=== PATIENT | male | born 1930 | race Caucasian/White ===

== ENCOUNTER → 2017-04-24 | Outpatient (CLI) | payer MEDICARE, OTHER | LOC: PETCFH 09:49 | PROVIDERS: ATTEND Urology | DX: R97.20 Elevated prostate specific antigen [PSA] (principal); J34.89 Other specified disorders of nose and nasal sinuses | CPT/HCPCS: 78306; A9503 ==

== ENCOUNTER → 2017-05-01 | Outpatient (CLI) | payer MEDICARE, OTHER ==
[~2017-05-01] MED LIST: REGADENOSON 0.4 MG/5 ML SYRINGE ONE
== END | disposition home or self-care (01) ==
LOC: CFH 08:09
PROVIDERS: ATTEND Internal Medicine Cardiovascular Disease
DX: I08.2 Rheumatic disorders of both aortic and tricuspid valves (principal); I25.2 Old myocardial infarction; I49.3 Ventricular premature depolarization
CPT/HCPCS: 78452; 93017; 93306; A9502; J2785

== ENCOUNTER → 2019-02-17 | Outpatient (CLI) | payer MEDICARE | END | disposition home or self-care (01) | LOC: CFH 08:29 | PROVIDERS: ATTEND Specialist | DX: I08.3 Combined rheumatic disorders of mitral, aortic and tricuspid valves (principal); I70.0 Atherosclerosis of aorta; E78.5 Hyperlipidemia, unspecified; C83.30 Diffuse large B-cell lymphoma, unspecified site | CPT/HCPCS: 93306 ==

== ENCOUNTER 2019-05-20 07:40 | Outpatient (CLI) | payer MEDICARE, OTHER | END 2019-05-20 23:59 | disposition home or self-care (01) | LOC: ROC 07:40 | PROVIDERS: ATTEND Radiology Radiation Oncology | DX: C83.39 Diffuse large B-cell lymphoma, extranodal and solid organ sites (principal) | CPT/HCPCS: G0463 ==

== ENCOUNTER 2019-07-26 23:06 | Emergency (ER) | payer MEDICARE, OTHER ==
[~2019-07-26] VITALS: Ht 188 cm; Wt 88.0 kg
--- NOTE | 2019-07-26 23:23 | NUR ---
ESTELLA-DAUGHTER [phone]
[2019-07-26] MEDS ORDERED: LIDOCAINE 1%-EPI 1:100K, 20ML ONE (23:26)
[2019-07-26] MEDS ORDERED: LIDOCAINE 1%-EPI 1:100K, 20ML INFIL ONE (23:30)
[2019-07-26] MEDS ORDERED: NEOSPORIN OINT. PKT 1 PACKET ONE (23:47)
[2019-07-27 00:24] VITALS: BP 116/74
== END 2019-07-27 00:32 | disposition home or self-care (01) ==
LOC: ED 23:30
DX: S81.812A Laceration without foreign body, left lower leg, initial encounter (principal); S80.12XA Contusion of left lower leg, initial encounter; X58.XXXA Exposure to other specified factors, initial encounter; Y93.89 Activity, other specified; Y92.89 Other specified places as the place of occurrence of the external cause; Y99.8 Other external cause status
CPT/HCPCS: 12032; 99284

== ENCOUNTER → 2019-07-31 | Outpatient (CLI) | payer MEDICARE, OTHER | END | disposition home or self-care (01) | LOC: ROC 07:50 | PROVIDERS: ATTEND Radiology Radiation Oncology | DX: C83.30 Diffuse large B-cell lymphoma, unspecified site (principal); C44.91 Basal cell carcinoma of skin, unspecified | CPT/HCPCS: G0463 ==

== ENCOUNTER 2019-08-28 07:51 | Outpatient (CLI) | payer MEDICARE, OTHER | END 2019-08-28 23:59 | disposition home or self-care (01) | LOC: ROC 07:51 | PROVIDERS: ATTEND Radiology Radiation Oncology | DX: C44.711 Basal cell carcinoma of skin of unspecified lower limb, including hip (principal) | CPT/HCPCS: G0463 ==

== ENCOUNTER 2019-09-04 09:58 | Outpatient (CLI) | payer MEDICARE, OTHER | END 2019-09-04 23:59 | disposition home or self-care (01) | LOC: ROC 09:58 | PROVIDERS: ATTEND Radiology Radiation Oncology | DX: C44.711 Basal cell carcinoma of skin of unspecified lower limb, including hip (principal) | CPT/HCPCS: G0463 ==

== ENCOUNTER 2019-10-08 07:34 | Outpatient (CLI) | payer MEDICARE, OTHER | END 2019-10-08 23:59 | disposition home or self-care (01) | LOC: ROC 07:34 | PROVIDERS: ATTEND Radiology Radiation Oncology | DX: Z08 Encounter for follow-up examination after completed treatment for malignant neoplasm (principal); C44.711 Basal cell carcinoma of skin of unspecified lower limb, including hip | CPT/HCPCS: G0463 ==

== ENCOUNTER → 2019-11-05 | Outpatient (CLI) | payer MEDICARE, OTHER | END | disposition home or self-care (01) | LOC: ROC 08:05 | PROVIDERS: ATTEND Radiology Radiation Oncology | DX: C44.712 Basal cell carcinoma of skin of right lower limb, including hip (principal); C83.35 Diffuse large B-cell lymphoma, lymph nodes of inguinal region and lower limb | CPT/HCPCS: G0463 ==

== ENCOUNTER → 2019-12-02 | Outpatient (CLI) | payer MEDICARE, OTHER | END | disposition home or self-care (01) | LOC: ROC 08:41 | PROVIDERS: ATTEND Radiology Radiation Oncology | DX: C44.712 Basal cell carcinoma of skin of right lower limb, including hip (principal); C83.35 Diffuse large B-cell lymphoma, lymph nodes of inguinal region and lower limb | CPT/HCPCS: G0463 ==

== ENCOUNTER → 2019-12-31 | Outpatient (CLI) | payer MEDICARE, OTHER | END | disposition home or self-care (01) | LOC: PETCFH 07:40 | PROVIDERS: ATTEND Specialist | DX: C83.30 Diffuse large B-cell lymphoma, unspecified site (principal); R91.8 Other nonspecific abnormal finding of lung field | CPT/HCPCS: 78816; A9552 ==

== ENCOUNTER 2020-01-08 14:40 | Outpatient (CLI) | payer MEDICARE, OTHER | END 2020-01-08 23:59 | disposition home or self-care (01) | LOC: WOUND 14:40 | PROVIDERS: ATTEND Family Medicine | DX: L97.812 Non-pressure chronic ulcer of other part of right lower leg with fat layer exposed (principal); C44.712 Basal cell carcinoma of skin of right lower limb, including hip; C83.35 Diffuse large B-cell lymphoma, lymph nodes of inguinal region and lower limb; I25.10 Atherosclerotic heart disease of native coronary artery without angina pectoris; L40.0 Psoriasis vulgaris; I35.0 Nonrheumatic aortic (valve) stenosis; N40.0 Benign prostatic hyperplasia without lower urinary tract symptoms; Z85.820 Personal history of malignant melanoma of skin | CPT/HCPCS: 97597; 97598; G0463 ==

== ENCOUNTER → 2020-01-15 | Outpatient (CLI) | payer MEDICARE, OTHER | END | disposition home or self-care (01) | LOC: WOUND 09:37 | PROVIDERS: ATTEND Family Medicine | DX: L97.812 Non-pressure chronic ulcer of other part of right lower leg with fat layer exposed (principal); C44.712 Basal cell carcinoma of skin of right lower limb, including hip; C83.35 Diffuse large B-cell lymphoma, lymph nodes of inguinal region and lower limb; I25.10 Atherosclerotic heart disease of native coronary artery without angina pectoris; L40.0 Psoriasis vulgaris; I35.0 Nonrheumatic aortic (valve) stenosis; N40.0 Benign prostatic hyperplasia without lower urinary tract symptoms; Z85.820 Personal history of malignant melanoma of skin | CPT/HCPCS: 11042; 11045 ==

== ENCOUNTER → 2020-01-22 | Outpatient (CLI) | payer MEDICARE, OTHER | END | disposition home or self-care (01) | LOC: WOUND 09:38 | PROVIDERS: ATTEND Family Medicine | DX: L97.812 Non-pressure chronic ulcer of other part of right lower leg with fat layer exposed (principal); C44.712 Basal cell carcinoma of skin of right lower limb, including hip; C83.35 Diffuse large B-cell lymphoma, lymph nodes of inguinal region and lower limb; I25.10 Atherosclerotic heart disease of native coronary artery without angina pectoris; L40.0 Psoriasis vulgaris; I35.0 Nonrheumatic aortic (valve) stenosis; E78.5 Hyperlipidemia, unspecified; N40.0 Benign prostatic hyperplasia without lower urinary tract symptoms; Z85.820 Personal history of malignant melanoma of skin | CPT/HCPCS: 97597; 97598 ==

== ENCOUNTER → 2020-01-29 | Outpatient (CLI) | payer MEDICARE, OTHER | END | disposition home or self-care (01) | LOC: WOUND 09:34 | PROVIDERS: ATTEND Family Medicine | DX: L97.812 Non-pressure chronic ulcer of other part of right lower leg with fat layer exposed (principal); C44.712 Basal cell carcinoma of skin of right lower limb, including hip; C83.35 Diffuse large B-cell lymphoma, lymph nodes of inguinal region and lower limb; I25.10 Atherosclerotic heart disease of native coronary artery without angina pectoris; L40.0 Psoriasis vulgaris; N40.0 Benign prostatic hyperplasia without lower urinary tract symptoms; E78.5 Hyperlipidemia, unspecified; Z85.820 Personal history of malignant melanoma of skin | CPT/HCPCS: 97597; 97598 ==

== ENCOUNTER 2020-02-05 09:37 | Outpatient (CLI) | payer MEDICARE, OTHER | END 2020-02-05 23:59 | disposition home or self-care (01) | LOC: WOUND 09:37 | PROVIDERS: ATTEND Family Medicine | DX: L97.812 Non-pressure chronic ulcer of other part of right lower leg with fat layer exposed (principal); C44.712 Basal cell carcinoma of skin of right lower limb, including hip; C83.35 Diffuse large B-cell lymphoma, lymph nodes of inguinal region and lower limb; I25.10 Atherosclerotic heart disease of native coronary artery without angina pectoris; L40.0 Psoriasis vulgaris; N40.0 Benign prostatic hyperplasia without lower urinary tract symptoms; E78.5 Hyperlipidemia, unspecified; Z85.820 Personal history of malignant melanoma of skin | CPT/HCPCS: 97597; 97598 ==

== ENCOUNTER → 2020-02-12 | Outpatient (CLI) | payer MEDICARE, OTHER | END | disposition home or self-care (01) | LOC: WOUND 13:04 | PROVIDERS: ATTEND Family Medicine | DX: L97.812 Non-pressure chronic ulcer of other part of right lower leg with fat layer exposed (principal); C44.712 Basal cell carcinoma of skin of right lower limb, including hip; C83.35 Diffuse large B-cell lymphoma, lymph nodes of inguinal region and lower limb; I25.10 Atherosclerotic heart disease of native coronary artery without angina pectoris; L40.0 Psoriasis vulgaris; N40.0 Benign prostatic hyperplasia without lower urinary tract symptoms; E78.5 Hyperlipidemia, unspecified; Z85.820 Personal history of malignant melanoma of skin | CPT/HCPCS: 97597; 97598 ==

== ENCOUNTER → 2020-02-19 | Outpatient (CLI) | payer MEDICARE, OTHER | END | disposition home or self-care (01) | LOC: WOUND 09:25 | PROVIDERS: ATTEND Family Medicine | DX: L97.812 Non-pressure chronic ulcer of other part of right lower leg with fat layer exposed (principal); C44.712 Basal cell carcinoma of skin of right lower limb, including hip; C83.35 Diffuse large B-cell lymphoma, lymph nodes of inguinal region and lower limb; I25.10 Atherosclerotic heart disease of native coronary artery without angina pectoris; L40.0 Psoriasis vulgaris; N40.0 Benign prostatic hyperplasia without lower urinary tract symptoms; E78.5 Hyperlipidemia, unspecified; Z85.820 Personal history of malignant melanoma of skin | CPT/HCPCS: 97597; 97598 ==

== ENCOUNTER → 2020-02-24 | Outpatient (CLI) | payer MEDICARE, OTHER | END | disposition home or self-care (01) | LOC: WOUND 14:04 | PROVIDERS: ATTEND Internal Medicine | DX: L97.812 Non-pressure chronic ulcer of other part of right lower leg with fat layer exposed (principal); C44.712 Basal cell carcinoma of skin of right lower limb, including hip; C83.35 Diffuse large B-cell lymphoma, lymph nodes of inguinal region and lower limb; I25.10 Atherosclerotic heart disease of native coronary artery without angina pectoris; L40.0 Psoriasis vulgaris; N40.0 Benign prostatic hyperplasia without lower urinary tract symptoms; E78.5 Hyperlipidemia, unspecified; Z85.820 Personal history of malignant melanoma of skin | CPT/HCPCS: 97597; 97598 ==

== ENCOUNTER → 2020-03-02 | Outpatient (CLI) | payer MEDICARE, OTHER | END | disposition home or self-care (01) | LOC: WOUND 14:31 | PROVIDERS: ATTEND Internal Medicine | DX: L97.812 Non-pressure chronic ulcer of other part of right lower leg with fat layer exposed (principal); C44.712 Basal cell carcinoma of skin of right lower limb, including hip; C83.35 Diffuse large B-cell lymphoma, lymph nodes of inguinal region and lower limb; I25.10 Atherosclerotic heart disease of native coronary artery without angina pectoris; L40.0 Psoriasis vulgaris; N40.0 Benign prostatic hyperplasia without lower urinary tract symptoms; I89.0 Lymphedema, not elsewhere classified; E78.5 Hyperlipidemia, unspecified; Z85.820 Personal history of malignant melanoma of skin | CPT/HCPCS: 97597; 97598 ==

== ENCOUNTER 2020-03-05 12:10 | Emergency (ER) | payer MEDICARE, OTHER ==
[~2020-03-05] VITALS: Ht 188 cm; Wt 95.1 kg
--- NOTE | 2020-03-05 13:19 | NUR ---
pt to room from lobby
--- NOTE | 2020-03-05 13:29 | NUR ---
PT CAME IN CO OF LLE SWELLING AND REDNESS. PT IS GOING THROUGH CHEMO FOR SKIN CANCER AND IS HIGH RISK FOR CLOTS. US COMPLETE. PT RESTING IN [facility]. AWAITING
[2020-03-05 14:06] VITALS: BP 115/61
--- NOTE | 2020-03-05 14:07 | NUR ---
IN WITH PT AT THIS TIME
== END 2020-03-05 14:18 | disposition home or self-care (01) ==
LOC: ED 14:11
DX: I89.0 Lymphedema, not elsewhere classified (principal); R60.0 Localized edema
CPT/HCPCS: 99284

== ENCOUNTER → 2020-03-09 | Outpatient (CLI) | payer MEDICARE, OTHER | END | disposition home or self-care (01) | LOC: WOUND 14:03 | PROVIDERS: ATTEND Internal Medicine | DX: L97.812 Non-pressure chronic ulcer of other part of right lower leg with fat layer exposed (principal); C44.712 Basal cell carcinoma of skin of right lower limb, including hip; C83.35 Diffuse large B-cell lymphoma, lymph nodes of inguinal region and lower limb; I25.10 Atherosclerotic heart disease of native coronary artery without angina pectoris; L40.0 Psoriasis vulgaris; N40.0 Benign prostatic hyperplasia without lower urinary tract symptoms; I89.0 Lymphedema, not elsewhere classified; E78.5 Hyperlipidemia, unspecified; Z85.820 Personal history of malignant melanoma of skin | CPT/HCPCS: 97597; 97598 ==

== ENCOUNTER → 2020-03-16 | Outpatient (CLI) | payer MEDICARE, OTHER | END | disposition home or self-care (01) | LOC: WOUND 14:38 | PROVIDERS: ATTEND Internal Medicine | DX: L97.812 Non-pressure chronic ulcer of other part of right lower leg with fat layer exposed (principal); C44.712 Basal cell carcinoma of skin of right lower limb, including hip; C83.35 Diffuse large B-cell lymphoma, lymph nodes of inguinal region and lower limb; I25.10 Atherosclerotic heart disease of native coronary artery without angina pectoris; L40.0 Psoriasis vulgaris; N40.0 Benign prostatic hyperplasia without lower urinary tract symptoms; I89.0 Lymphedema, not elsewhere classified; E78.5 Hyperlipidemia, unspecified; Z85.820 Personal history of malignant melanoma of skin | CPT/HCPCS: 97597; 97598 ==

== ENCOUNTER → 2020-03-23 | Outpatient (CLI) | payer MEDICARE, OTHER | END | disposition home or self-care (01) | LOC: WOUND 14:12 | PROVIDERS: ATTEND Internal Medicine | DX: L97.812 Non-pressure chronic ulcer of other part of right lower leg with fat layer exposed (principal); C44.712 Basal cell carcinoma of skin of right lower limb, including hip; C83.35 Diffuse large B-cell lymphoma, lymph nodes of inguinal region and lower limb; I25.10 Atherosclerotic heart disease of native coronary artery without angina pectoris; L40.0 Psoriasis vulgaris; N40.0 Benign prostatic hyperplasia without lower urinary tract symptoms; I89.0 Lymphedema, not elsewhere classified; E78.5 Hyperlipidemia, unspecified; Z85.820 Personal history of malignant melanoma of skin | CPT/HCPCS: 97597; 97598 ==

== ENCOUNTER → 2020-04-05 | Outpatient (CLI) | payer MEDICARE, OTHER | END | disposition home or self-care (01) | LOC: WOUND 13:06 | PROVIDERS: ATTEND Nurse Practitioner Family | DX: L97.812 Non-pressure chronic ulcer of other part of right lower leg with fat layer exposed (principal); C44.712 Basal cell carcinoma of skin of right lower limb, including hip; C83.35 Diffuse large B-cell lymphoma, lymph nodes of inguinal region and lower limb; I25.10 Atherosclerotic heart disease of native coronary artery without angina pectoris; L40.0 Psoriasis vulgaris; N40.0 Benign prostatic hyperplasia without lower urinary tract symptoms; I89.0 Lymphedema, not elsewhere classified; E78.5 Hyperlipidemia, unspecified; Z85.820 Personal history of malignant melanoma of skin | CPT/HCPCS: 97597; 97598 ==

== ENCOUNTER → 2020-04-06 | Outpatient (CLI) | payer MEDICARE, OTHER | END | disposition home or self-care (01) | LOC: CVU 12:52 | PROVIDERS: ATTEND Internal Medicine | DX: I86.8 Varicose veins of other specified sites (principal); L97.919 Non-pressure chronic ulcer of unspecified part of right lower leg with unspecified severity; I70.203 Unspecified atherosclerosis of native arteries of extremities, bilateral legs | CPT/HCPCS: 93922; 93925; 93970 ==

== ENCOUNTER 2020-04-12 13:32 | Outpatient (CLI) | payer MEDICARE, OTHER | END 2020-04-12 23:59 | disposition home or self-care (01) | LOC: WOUND 13:32 | PROVIDERS: ATTEND Nurse Practitioner Family | DX: L97.812 Non-pressure chronic ulcer of other part of right lower leg with fat layer exposed (principal); C43.4 Malignant melanoma of scalp and neck; C83.35 Diffuse large B-cell lymphoma, lymph nodes of inguinal region and lower limb; I25.10 Atherosclerotic heart disease of native coronary artery without angina pectoris; L40.0 Psoriasis vulgaris | CPT/HCPCS: 15271; 15272; Q4196; 15275; 15276 ==

== ENCOUNTER 2020-04-19 14:31 | Outpatient (CLI) | payer MEDICARE, OTHER | END 2020-04-19 23:59 | disposition home or self-care (01) | LOC: WOUND 14:31 | PROVIDERS: ATTEND Nurse Practitioner Family | DX: L97.812 Non-pressure chronic ulcer of other part of right lower leg with fat layer exposed (principal); C44.712 Basal cell carcinoma of skin of right lower limb, including hip; C83.35 Diffuse large B-cell lymphoma, lymph nodes of inguinal region and lower limb; I25.10 Atherosclerotic heart disease of native coronary artery without angina pectoris; L40.0 Psoriasis vulgaris; N40.0 Benign prostatic hyperplasia without lower urinary tract symptoms; I89.0 Lymphedema, not elsewhere classified; E78.5 Hyperlipidemia, unspecified; Z85.820 Personal history of malignant melanoma of skin | CPT/HCPCS: 87015; 87070; 87077; 87102; 87116; 87147; 87186; 87205; 87206; 97597; 97598 ==

== ENCOUNTER 2020-04-26 08:31 | Outpatient (CLI) | payer MEDICARE, OTHER | END 2020-04-26 23:59 | disposition home or self-care (01) | LOC: WOUND 08:31 | PROVIDERS: ATTEND Nurse Practitioner Family | DX: I70.238 Atherosclerosis of native arteries of right leg with ulceration of other part of lower leg (principal); L59.8 Other specified disorders of the skin and subcutaneous tissue related to radiation; I83.018 Varicose veins of right lower extremity with ulcer other part of lower leg; L97.812 Non-pressure chronic ulcer of other part of right lower leg with fat layer exposed; C44.712 Basal cell carcinoma of skin of right lower limb, including hip; C83.35 Diffuse large B-cell lymphoma, lymph nodes of inguinal region and lower limb; I25.10 Atherosclerotic heart disease of native coronary artery without angina pectoris; L40.0 Psoriasis vulgaris; N40.0 Benign prostatic hyperplasia without lower urinary tract symptoms; I89.0 Lymphedema, not elsewhere classified; E78.5 Hyperlipidemia, unspecified; Z85.820 Personal history of malignant melanoma of skin; Y84.2 Radiological procedure and radiotherapy as the cause of abnormal reaction of the patient, or of later complication, without mention of misadventure at the time of the procedure | CPT/HCPCS: 97597; 97598 ==

== ENCOUNTER 2020-05-03 11:08 | Outpatient (CLI) | payer MEDICARE, OTHER | END 2020-05-03 23:59 | disposition home or self-care (01) | LOC: WOUND 11:08 | PROVIDERS: ATTEND Nurse Practitioner Family | DX: I70.238 Atherosclerosis of native arteries of right leg with ulceration of other part of lower leg (principal); I83.018 Varicose veins of right lower extremity with ulcer other part of lower leg; L97.812 Non-pressure chronic ulcer of other part of right lower leg with fat layer exposed; L59.8 Other specified disorders of the skin and subcutaneous tissue related to radiation; C44.712 Basal cell carcinoma of skin of right lower limb, including hip; C83.35 Diffuse large B-cell lymphoma, lymph nodes of inguinal region and lower limb; I25.10 Atherosclerotic heart disease of native coronary artery without angina pectoris; L40.0 Psoriasis vulgaris; N40.0 Benign prostatic hyperplasia without lower urinary tract symptoms; I89.0 Lymphedema, not elsewhere classified; E78.5 Hyperlipidemia, unspecified; Z85.820 Personal history of malignant melanoma of skin; Y84.2 Radiological procedure and radiotherapy as the cause of abnormal reaction of the patient, or of later complication, without mention of misadventure at the time of the procedure | CPT/HCPCS: 97597; 97598 ==

== ENCOUNTER 2020-05-06 11:15 | Outpatient (CLI) | payer MEDICARE, OTHER | END 2020-05-06 23:59 | disposition home or self-care (01) | LOC: WOUND 11:15 | PROVIDERS: ATTEND Internal Medicine Cardiovascular Disease | DX: I70.238 Atherosclerosis of native arteries of right leg with ulceration of other part of lower leg (principal); L59.8 Other specified disorders of the skin and subcutaneous tissue related to radiation; I83.018 Varicose veins of right lower extremity with ulcer other part of lower leg; L97.812 Non-pressure chronic ulcer of other part of right lower leg with fat layer exposed; C44.712 Basal cell carcinoma of skin of right lower limb, including hip; C83.35 Diffuse large B-cell lymphoma, lymph nodes of inguinal region and lower limb; I25.10 Atherosclerotic heart disease of native coronary artery without angina pectoris; L40.0 Psoriasis vulgaris; N40.0 Benign prostatic hyperplasia without lower urinary tract symptoms; I89.0 Lymphedema, not elsewhere classified; E78.5 Hyperlipidemia, unspecified; Z85.820 Personal history of malignant melanoma of skin; Y84.2 Radiological procedure and radiotherapy as the cause of abnormal reaction of the patient, or of later complication, without mention of misadventure at the time of the procedure | CPT/HCPCS: 97605 ==

== ENCOUNTER → 2020-05-18 | Outpatient (CLI) | payer MEDICARE, OTHER | END | disposition home or self-care (01) | LOC: WOUND 11:01 | PROVIDERS: ATTEND Internal Medicine | DX: I70.238 Atherosclerosis of native arteries of right leg with ulceration of other part of lower leg (principal); L59.8 Other specified disorders of the skin and subcutaneous tissue related to radiation; I83.018 Varicose veins of right lower extremity with ulcer other part of lower leg; L97.812 Non-pressure chronic ulcer of other part of right lower leg with fat layer exposed; I70.292 Other atherosclerosis of native arteries of extremities, left leg; C44.712 Basal cell carcinoma of skin of right lower limb, including hip; C83.35 Diffuse large B-cell lymphoma, lymph nodes of inguinal region and lower limb; I25.10 Atherosclerotic heart disease of native coronary artery without angina pectoris; L40.0 Psoriasis vulgaris; N40.0 Benign prostatic hyperplasia without lower urinary tract symptoms; I89.0 Lymphedema, not elsewhere classified; E78.5 Hyperlipidemia, unspecified; Z85.820 Personal history of malignant melanoma of skin; Y84.2 Radiological procedure and radiotherapy as the cause of abnormal reaction of the patient, or of later complication, without mention of misadventure at the time of the procedure | CPT/HCPCS: 97597; 97598 ==

== ENCOUNTER → 2020-05-25 | Outpatient (CLI) | payer MEDICARE, OTHER | END | disposition home or self-care (01) | LOC: WOUND 08:21 | PROVIDERS: ATTEND Internal Medicine | DX: I70.238 Atherosclerosis of native arteries of right leg with ulceration of other part of lower leg (principal); I83.018 Varicose veins of right lower extremity with ulcer other part of lower leg; L97.812 Non-pressure chronic ulcer of other part of right lower leg with fat layer exposed; S81.801D Unspecified open wound, right lower leg, subsequent encounter; L59.8 Other specified disorders of the skin and subcutaneous tissue related to radiation; I70.292 Other atherosclerosis of native arteries of extremities, left leg; C44.712 Basal cell carcinoma of skin of right lower limb, including hip; C83.35 Diffuse large B-cell lymphoma, lymph nodes of inguinal region and lower limb; I25.10 Atherosclerotic heart disease of native coronary artery without angina pectoris; L40.0 Psoriasis vulgaris; N40.0 Benign prostatic hyperplasia without lower urinary tract symptoms; I89.0 Lymphedema, not elsewhere classified; E78.5 Hyperlipidemia, unspecified; Z85.820 Personal history of malignant melanoma of skin; Y84.2 Radiological procedure and radiotherapy as the cause of abnormal reaction of the patient, or of later complication, without mention of misadventure at the time of the procedure; X58.XXXD Exposure to other specified factors, subsequent encounter | CPT/HCPCS: 97597; 97598 ==

== ENCOUNTER → 2020-05-31 | Outpatient (CLI) | payer MEDICARE, OTHER | END | disposition home or self-care (01) | LOC: WOUND 08:12 | PROVIDERS: ATTEND Nurse Practitioner Family | DX: I70.238 Atherosclerosis of native arteries of right leg with ulceration of other part of lower leg (principal); I83.018 Varicose veins of right lower extremity with ulcer other part of lower leg; L97.812 Non-pressure chronic ulcer of other part of right lower leg with fat layer exposed; S81.801D Unspecified open wound, right lower leg, subsequent encounter; L59.8 Other specified disorders of the skin and subcutaneous tissue related to radiation; I70.292 Other atherosclerosis of native arteries of extremities, left leg; C44.712 Basal cell carcinoma of skin of right lower limb, including hip; C83.35 Diffuse large B-cell lymphoma, lymph nodes of inguinal region and lower limb; I25.10 Atherosclerotic heart disease of native coronary artery without angina pectoris; L40.0 Psoriasis vulgaris; N40.0 Benign prostatic hyperplasia without lower urinary tract symptoms; I89.0 Lymphedema, not elsewhere classified; E78.5 Hyperlipidemia, unspecified; Z85.820 Personal history of malignant melanoma of skin; Y84.2 Radiological procedure and radiotherapy as the cause of abnormal reaction of the patient, or of later complication, without mention of misadventure at the time of the procedure; X58.XXXD Exposure to other specified factors, subsequent encounter | CPT/HCPCS: 97597; 97598 ==

== ENCOUNTER 2020-06-07 10:03 | Outpatient (CLI) | payer MEDICARE, OTHER | END 2020-06-07 23:59 | disposition home or self-care (01) | LOC: WOUND 10:03 | PROVIDERS: ATTEND Nurse Practitioner Family | DX: I70.238 Atherosclerosis of native arteries of right leg with ulceration of other part of lower leg (principal); I83.018 Varicose veins of right lower extremity with ulcer other part of lower leg; L97.812 Non-pressure chronic ulcer of other part of right lower leg with fat layer exposed; I70.292 Other atherosclerosis of native arteries of extremities, left leg; C44.712 Basal cell carcinoma of skin of right lower limb, including hip; C83.35 Diffuse large B-cell lymphoma, lymph nodes of inguinal region and lower limb; I25.10 Atherosclerotic heart disease of native coronary artery without angina pectoris; L40.0 Psoriasis vulgaris; S81.801D Unspecified open wound, right lower leg, subsequent encounter; L59.8 Other specified disorders of the skin and subcutaneous tissue related to radiation; N40.0 Benign prostatic hyperplasia without lower urinary tract symptoms; I89.0 Lymphedema, not elsewhere classified; E78.5 Hyperlipidemia, unspecified; Z85.820 Personal history of malignant melanoma of skin; Y84.2 Radiological procedure and radiotherapy as the cause of abnormal reaction of the patient, or of later complication, without mention of misadventure at the time of the procedure; X58.XXXD Exposure to other specified factors, subsequent encounter | CPT/HCPCS: 97597; 97598 ==

== ENCOUNTER → 2020-06-14 | Outpatient (CLI) | payer MEDICARE, OTHER | END | disposition home or self-care (01) | LOC: WOUND 13:31 | PROVIDERS: ATTEND Nurse Practitioner Family | DX: I70.238 Atherosclerosis of native arteries of right leg with ulceration of other part of lower leg (principal); I83.018 Varicose veins of right lower extremity with ulcer other part of lower leg; L97.812 Non-pressure chronic ulcer of other part of right lower leg with fat layer exposed; S81.801D Unspecified open wound, right lower leg, subsequent encounter; I70.292 Other atherosclerosis of native arteries of extremities, left leg; C44.712 Basal cell carcinoma of skin of right lower limb, including hip; C83.35 Diffuse large B-cell lymphoma, lymph nodes of inguinal region and lower limb; I25.10 Atherosclerotic heart disease of native coronary artery without angina pectoris; L40.0 Psoriasis vulgaris; L59.8 Other specified disorders of the skin and subcutaneous tissue related to radiation; N40.0 Benign prostatic hyperplasia without lower urinary tract symptoms; I89.0 Lymphedema, not elsewhere classified; E78.5 Hyperlipidemia, unspecified; Z85.820 Personal history of malignant melanoma of skin; Y84.2 Radiological procedure and radiotherapy as the cause of abnormal reaction of the patient, or of later complication, without mention of misadventure at the time of the procedure; X58.XXXD Exposure to other specified factors, subsequent encounter | CPT/HCPCS: 97597; 97598 ==

== ENCOUNTER 2020-06-21 14:25 | Outpatient (CLI) | payer MEDICARE, OTHER | END 2020-06-21 23:59 | disposition home or self-care (01) | LOC: WOUND 14:25 | PROVIDERS: ATTEND Nurse Practitioner Family | DX: I70.238 Atherosclerosis of native arteries of right leg with ulceration of other part of lower leg (principal); I83.018 Varicose veins of right lower extremity with ulcer other part of lower leg; L97.812 Non-pressure chronic ulcer of other part of right lower leg with fat layer exposed; L59.8 Other specified disorders of the skin and subcutaneous tissue related to radiation; S81.801D Unspecified open wound, right lower leg, subsequent encounter; L03.115 Cellulitis of right lower limb; I70.292 Other atherosclerosis of native arteries of extremities, left leg; C44.712 Basal cell carcinoma of skin of right lower limb, including hip; C83.35 Diffuse large B-cell lymphoma, lymph nodes of inguinal region and lower limb; I25.10 Atherosclerotic heart disease of native coronary artery without angina pectoris; L40.0 Psoriasis vulgaris; N40.0 Benign prostatic hyperplasia without lower urinary tract symptoms; I89.0 Lymphedema, not elsewhere classified; E78.5 Hyperlipidemia, unspecified; Z85.820 Personal history of malignant melanoma of skin; Y84.2 Radiological procedure and radiotherapy as the cause of abnormal reaction of the patient, or of later complication, without mention of misadventure at the time of the procedure; X58.XXXD Exposure to other specified factors, subsequent encounter | CPT/HCPCS: 15271; Q4133; 15272 ==

== ENCOUNTER → 2020-06-28 | Outpatient (CLI) | payer MEDICARE, OTHER | END | disposition home or self-care (01) | LOC: WOUND 14:22 | PROVIDERS: ATTEND Nurse Practitioner Family | DX: I83.018 Varicose veins of right lower extremity with ulcer other part of lower leg (principal); I70.238 Atherosclerosis of native arteries of right leg with ulceration of other part of lower leg; L97.815 Non-pressure chronic ulcer of other part of right lower leg with muscle involvement without evidence of necrosis; L59.8 Other specified disorders of the skin and subcutaneous tissue related to radiation; L03.115 Cellulitis of right lower limb; C44.712 Basal cell carcinoma of skin of right lower limb, including hip; C83.35 Diffuse large B-cell lymphoma, lymph nodes of inguinal region and lower limb; I25.10 Atherosclerotic heart disease of native coronary artery without angina pectoris; L40.0 Psoriasis vulgaris; I89.0 Lymphedema, not elsewhere classified; N40.0 Benign prostatic hyperplasia without lower urinary tract symptoms; E78.5 Hyperlipidemia, unspecified; Y84.2 Radiological procedure and radiotherapy as the cause of abnormal reaction of the patient, or of later complication, without mention of misadventure at the time of the procedure | CPT/HCPCS: 15271; 15272; Q4133 ==

== ENCOUNTER → 2020-07-05 | Outpatient (CLI) | payer MEDICARE, OTHER | END | disposition home or self-care (01) | LOC: WOUND 10:25 | PROVIDERS: ATTEND Nurse Practitioner Family | DX: I83.018 Varicose veins of right lower extremity with ulcer other part of lower leg (principal); I70.238 Atherosclerosis of native arteries of right leg with ulceration of other part of lower leg; L97.815 Non-pressure chronic ulcer of other part of right lower leg with muscle involvement without evidence of necrosis; L59.8 Other specified disorders of the skin and subcutaneous tissue related to radiation; L03.115 Cellulitis of right lower limb; C44.712 Basal cell carcinoma of skin of right lower limb, including hip; C83.35 Diffuse large B-cell lymphoma, lymph nodes of inguinal region and lower limb; I25.10 Atherosclerotic heart disease of native coronary artery without angina pectoris; L40.0 Psoriasis vulgaris; I89.0 Lymphedema, not elsewhere classified; N40.0 Benign prostatic hyperplasia without lower urinary tract symptoms; E78.5 Hyperlipidemia, unspecified; Z85.828 Personal history of other malignant neoplasm of skin; Y84.2 Radiological procedure and radiotherapy as the cause of abnormal reaction of the patient, or of later complication, without mention of misadventure at the time of the procedure | CPT/HCPCS: 15271; 15272; Q4133 ==

== ENCOUNTER → 2020-07-12 | Outpatient (CLI) | payer MEDICARE, OTHER | END | disposition home or self-care (01) | LOC: WOUND 10:40 | PROVIDERS: ATTEND Nurse Practitioner Family | DX: I83.018 Varicose veins of right lower extremity with ulcer other part of lower leg (principal); I70.238 Atherosclerosis of native arteries of right leg with ulceration of other part of lower leg; L97.812 Non-pressure chronic ulcer of other part of right lower leg with fat layer exposed; I70.202 Unspecified atherosclerosis of native arteries of extremities, left leg; L59.8 Other specified disorders of the skin and subcutaneous tissue related to radiation; L03.115 Cellulitis of right lower limb; C44.712 Basal cell carcinoma of skin of right lower limb, including hip; C83.35 Diffuse large B-cell lymphoma, lymph nodes of inguinal region and lower limb; I25.10 Atherosclerotic heart disease of native coronary artery without angina pectoris; L40.0 Psoriasis vulgaris; I89.0 Lymphedema, not elsewhere classified; L84 Corns and callosities; N40.0 Benign prostatic hyperplasia without lower urinary tract symptoms; E78.5 Hyperlipidemia, unspecified; Z85.828 Personal history of other malignant neoplasm of skin; Y84.2 Radiological procedure and radiotherapy as the cause of abnormal reaction of the patient, or of later complication, without mention of misadventure at the time of the procedure | CPT/HCPCS: C5271; C5272; Q4166 ==

== ENCOUNTER → 2020-07-19 | Outpatient (CLI) | payer MEDICARE, OTHER | END | disposition home or self-care (01) | LOC: WOUND 12:52 | PROVIDERS: ATTEND Nurse Practitioner Family | DX: I83.018 Varicose veins of right lower extremity with ulcer other part of lower leg (principal); I70.238 Atherosclerosis of native arteries of right leg with ulceration of other part of lower leg; L97.812 Non-pressure chronic ulcer of other part of right lower leg with fat layer exposed; I70.202 Unspecified atherosclerosis of native arteries of extremities, left leg; L59.8 Other specified disorders of the skin and subcutaneous tissue related to radiation; L03.115 Cellulitis of right lower limb; C44.712 Basal cell carcinoma of skin of right lower limb, including hip; C83.35 Diffuse large B-cell lymphoma, lymph nodes of inguinal region and lower limb; I25.10 Atherosclerotic heart disease of native coronary artery without angina pectoris; L40.0 Psoriasis vulgaris; I89.0 Lymphedema, not elsewhere classified; L84 Corns and callosities; N40.0 Benign prostatic hyperplasia without lower urinary tract symptoms; E78.5 Hyperlipidemia, unspecified; Z85.828 Personal history of other malignant neoplasm of skin; Y84.2 Radiological procedure and radiotherapy as the cause of abnormal reaction of the patient, or of later complication, without mention of misadventure at the time of the procedure | CPT/HCPCS: C5271; C5272; Q4166 ==

== ENCOUNTER → 2020-07-26 | Outpatient (CLI) | payer MEDICARE, OTHER | END | disposition home or self-care (01) | LOC: WOUND 13:18 | PROVIDERS: ATTEND Nurse Practitioner Family | DX: I83.018 Varicose veins of right lower extremity with ulcer other part of lower leg (principal); I70.238 Atherosclerosis of native arteries of right leg with ulceration of other part of lower leg; L97.812 Non-pressure chronic ulcer of other part of right lower leg with fat layer exposed; I70.202 Unspecified atherosclerosis of native arteries of extremities, left leg; L59.8 Other specified disorders of the skin and subcutaneous tissue related to radiation; L03.115 Cellulitis of right lower limb; C44.712 Basal cell carcinoma of skin of right lower limb, including hip; C83.35 Diffuse large B-cell lymphoma, lymph nodes of inguinal region and lower limb; I25.10 Atherosclerotic heart disease of native coronary artery without angina pectoris; L40.0 Psoriasis vulgaris; I89.0 Lymphedema, not elsewhere classified; L84 Corns and callosities; N40.0 Benign prostatic hyperplasia without lower urinary tract symptoms; E78.5 Hyperlipidemia, unspecified; Z85.828 Personal history of other malignant neoplasm of skin; Y84.2 Radiological procedure and radiotherapy as the cause of abnormal reaction of the patient, or of later complication, without mention of misadventure at the time of the procedure | CPT/HCPCS: 15271; 15272; Q4132 ==

== ENCOUNTER → 2020-08-09 | Outpatient (CLI) | payer MEDICARE, OTHER | END | disposition home or self-care (01) | LOC: WOUND 10:02 | PROVIDERS: ATTEND Nurse Practitioner Family | DX: I83.018 Varicose veins of right lower extremity with ulcer other part of lower leg (principal); I70.238 Atherosclerosis of native arteries of right leg with ulceration of other part of lower leg; L97.812 Non-pressure chronic ulcer of other part of right lower leg with fat layer exposed; L59.8 Other specified disorders of the skin and subcutaneous tissue related to radiation; I70.202 Unspecified atherosclerosis of native arteries of extremities, left leg; L03.115 Cellulitis of right lower limb; C44.712 Basal cell carcinoma of skin of right lower limb, including hip; C83.35 Diffuse large B-cell lymphoma, lymph nodes of inguinal region and lower limb; I25.10 Atherosclerotic heart disease of native coronary artery without angina pectoris; L40.0 Psoriasis vulgaris; I89.0 Lymphedema, not elsewhere classified; L84 Corns and callosities; N40.0 Benign prostatic hyperplasia without lower urinary tract symptoms; E78.5 Hyperlipidemia, unspecified; Z85.828 Personal history of other malignant neoplasm of skin; Y84.2 Radiological procedure and radiotherapy as the cause of abnormal reaction of the patient, or of later complication, without mention of misadventure at the time of the procedure | CPT/HCPCS: 15271; 15272; Q4133 ==

== ENCOUNTER → 2020-08-16 | Outpatient (CLI) | payer MEDICARE, OTHER | END | disposition home or self-care (01) | LOC: WOUND 13:02 | PROVIDERS: ATTEND Nurse Practitioner Family | DX: I83.018 Varicose veins of right lower extremity with ulcer other part of lower leg (principal); I70.238 Atherosclerosis of native arteries of right leg with ulceration of other part of lower leg; L97.812 Non-pressure chronic ulcer of other part of right lower leg with fat layer exposed; L59.8 Other specified disorders of the skin and subcutaneous tissue related to radiation; I70.202 Unspecified atherosclerosis of native arteries of extremities, left leg; L03.115 Cellulitis of right lower limb; C44.712 Basal cell carcinoma of skin of right lower limb, including hip; C83.35 Diffuse large B-cell lymphoma, lymph nodes of inguinal region and lower limb; I25.10 Atherosclerotic heart disease of native coronary artery without angina pectoris; L40.0 Psoriasis vulgaris; I89.0 Lymphedema, not elsewhere classified; L84 Corns and callosities; N40.0 Benign prostatic hyperplasia without lower urinary tract symptoms; E78.5 Hyperlipidemia, unspecified; Z85.828 Personal history of other malignant neoplasm of skin; Y84.2 Radiological procedure and radiotherapy as the cause of abnormal reaction of the patient, or of later complication, without mention of misadventure at the time of the procedure | CPT/HCPCS: 15271; 15272; Q4133 ==

== ENCOUNTER 2020-08-23 13:31 | Outpatient (CLI) | payer MEDICARE, OTHER | END 2020-08-23 23:59 | disposition home or self-care (01) | LOC: WOUND 13:31 | PROVIDERS: ATTEND Nurse Practitioner Family | DX: I83.018 Varicose veins of right lower extremity with ulcer other part of lower leg (principal); I70.238 Atherosclerosis of native arteries of right leg with ulceration of other part of lower leg; L97.812 Non-pressure chronic ulcer of other part of right lower leg with fat layer exposed; L59.8 Other specified disorders of the skin and subcutaneous tissue related to radiation; I70.202 Unspecified atherosclerosis of native arteries of extremities, left leg; L03.115 Cellulitis of right lower limb; C44.712 Basal cell carcinoma of skin of right lower limb, including hip; C83.35 Diffuse large B-cell lymphoma, lymph nodes of inguinal region and lower limb; I25.10 Atherosclerotic heart disease of native coronary artery without angina pectoris; L40.0 Psoriasis vulgaris; I89.0 Lymphedema, not elsewhere classified; L84 Corns and callosities; N40.0 Benign prostatic hyperplasia without lower urinary tract symptoms; E78.5 Hyperlipidemia, unspecified; Z85.828 Personal history of other malignant neoplasm of skin; Y84.2 Radiological procedure and radiotherapy as the cause of abnormal reaction of the patient, or of later complication, without mention of misadventure at the time of the procedure | CPT/HCPCS: 15271; 15272; Q4132 ==

== ENCOUNTER → 2020-08-30 | Outpatient (CLI) | payer MEDICARE, OTHER | END | disposition home or self-care (01) | LOC: WOUND 13:16 | PROVIDERS: ATTEND Nurse Practitioner Family | DX: I83.018 Varicose veins of right lower extremity with ulcer other part of lower leg (principal); I70.238 Atherosclerosis of native arteries of right leg with ulceration of other part of lower leg; L97.812 Non-pressure chronic ulcer of other part of right lower leg with fat layer exposed; L59.8 Other specified disorders of the skin and subcutaneous tissue related to radiation; I70.202 Unspecified atherosclerosis of native arteries of extremities, left leg; L03.115 Cellulitis of right lower limb; C44.712 Basal cell carcinoma of skin of right lower limb, including hip; C83.35 Diffuse large B-cell lymphoma, lymph nodes of inguinal region and lower limb; I25.10 Atherosclerotic heart disease of native coronary artery without angina pectoris; L40.0 Psoriasis vulgaris; I89.0 Lymphedema, not elsewhere classified; L84 Corns and callosities; N40.0 Benign prostatic hyperplasia without lower urinary tract symptoms; E78.5 Hyperlipidemia, unspecified; Z85.828 Personal history of other malignant neoplasm of skin | CPT/HCPCS: 15271; 15272; Q4196 ==

== ENCOUNTER → 2020-09-06 | Outpatient (CLI) | payer MEDICARE, OTHER | END | disposition home or self-care (01) | LOC: WOUND 13:04 | PROVIDERS: ATTEND Nurse Practitioner Family | DX: I83.018 Varicose veins of right lower extremity with ulcer other part of lower leg (principal); I70.238 Atherosclerosis of native arteries of right leg with ulceration of other part of lower leg; L97.812 Non-pressure chronic ulcer of other part of right lower leg with fat layer exposed; L59.8 Other specified disorders of the skin and subcutaneous tissue related to radiation; I70.202 Unspecified atherosclerosis of native arteries of extremities, left leg; L03.115 Cellulitis of right lower limb; C44.712 Basal cell carcinoma of skin of right lower limb, including hip; C83.35 Diffuse large B-cell lymphoma, lymph nodes of inguinal region and lower limb; I25.10 Atherosclerotic heart disease of native coronary artery without angina pectoris; L40.0 Psoriasis vulgaris; I89.0 Lymphedema, not elsewhere classified; L84 Corns and callosities; N40.0 Benign prostatic hyperplasia without lower urinary tract symptoms; E78.5 Hyperlipidemia, unspecified; Z85.828 Personal history of other malignant neoplasm of skin; Y84.2 Radiological procedure and radiotherapy as the cause of abnormal reaction of the patient, or of later complication, without mention of misadventure at the time of the procedure | CPT/HCPCS: 97597; 97598 ==

== ENCOUNTER → 2020-09-14 | Outpatient (CLI) | payer MEDICARE, OTHER | END | disposition home or self-care (01) | LOC: WOUND 10:39 | PROVIDERS: ATTEND Internal Medicine | DX: I83.018 Varicose veins of right lower extremity with ulcer other part of lower leg (principal); I70.238 Atherosclerosis of native arteries of right leg with ulceration of other part of lower leg; L97.812 Non-pressure chronic ulcer of other part of right lower leg with fat layer exposed; L59.8 Other specified disorders of the skin and subcutaneous tissue related to radiation; I70.202 Unspecified atherosclerosis of native arteries of extremities, left leg; I25.10 Atherosclerotic heart disease of native coronary artery without angina pectoris; L03.115 Cellulitis of right lower limb; C44.712 Basal cell carcinoma of skin of right lower limb, including hip; C83.35 Diffuse large B-cell lymphoma, lymph nodes of inguinal region and lower limb; L40.0 Psoriasis vulgaris; I89.0 Lymphedema, not elsewhere classified; L84 Corns and callosities; N40.0 Benign prostatic hyperplasia without lower urinary tract symptoms; E78.5 Hyperlipidemia, unspecified; Z85.828 Personal history of other malignant neoplasm of skin; Y84.2 Radiological procedure and radiotherapy as the cause of abnormal reaction of the patient, or of later complication, without mention of misadventure at the time of the procedure | CPT/HCPCS: 15271; 15272; Q4133 ==

== ENCOUNTER 2020-09-20 14:00 | Outpatient (CLI) | payer MEDICARE, OTHER | END 2020-09-20 23:59 | disposition home or self-care (01) | LOC: WOUND 14:00 | PROVIDERS: ATTEND Nurse Practitioner Family | DX: I83.018 Varicose veins of right lower extremity with ulcer other part of lower leg (principal); L97.812 Non-pressure chronic ulcer of other part of right lower leg with fat layer exposed; I70.238 Atherosclerosis of native arteries of right leg with ulceration of other part of lower leg; I70.202 Unspecified atherosclerosis of native arteries of extremities, left leg; I25.10 Atherosclerotic heart disease of native coronary artery without angina pectoris; L59.8 Other specified disorders of the skin and subcutaneous tissue related to radiation; L03.115 Cellulitis of right lower limb; C44.712 Basal cell carcinoma of skin of right lower limb, including hip; C83.35 Diffuse large B-cell lymphoma, lymph nodes of inguinal region and lower limb; L40.0 Psoriasis vulgaris; I89.0 Lymphedema, not elsewhere classified; L84 Corns and callosities; N40.0 Benign prostatic hyperplasia without lower urinary tract symptoms; E78.5 Hyperlipidemia, unspecified; Z85.828 Personal history of other malignant neoplasm of skin; Y84.2 Radiological procedure and radiotherapy as the cause of abnormal reaction of the patient, or of later complication, without mention of misadventure at the time of the procedure | CPT/HCPCS: 15271; 15272; Q4132 ==

== ENCOUNTER → 2020-09-23 | Outpatient (CLI) | payer MEDICARE, OTHER | END | disposition home or self-care (01) | LOC: RAD 10:53 | PROVIDERS: ATTEND Specialist | DX: C83.30 Diffuse large B-cell lymphoma, unspecified site (principal); C43.9 Malignant melanoma of skin, unspecified | CPT/HCPCS: 76700 ==

== ENCOUNTER → 2020-09-27 | Outpatient (CLI) | payer MEDICARE, OTHER | END | disposition home or self-care (01) | LOC: WOUND 08:59 | PROVIDERS: ATTEND Nurse Practitioner Family | DX: I83.018 Varicose veins of right lower extremity with ulcer other part of lower leg (principal); I70.238 Atherosclerosis of native arteries of right leg with ulceration of other part of lower leg; L97.812 Non-pressure chronic ulcer of other part of right lower leg with fat layer exposed; L59.8 Other specified disorders of the skin and subcutaneous tissue related to radiation; I70.202 Unspecified atherosclerosis of native arteries of extremities, left leg; I25.10 Atherosclerotic heart disease of native coronary artery without angina pectoris; L03.115 Cellulitis of right lower limb; C44.712 Basal cell carcinoma of skin of right lower limb, including hip; C83.35 Diffuse large B-cell lymphoma, lymph nodes of inguinal region and lower limb; L40.0 Psoriasis vulgaris; I89.0 Lymphedema, not elsewhere classified; L84 Corns and callosities; N40.0 Benign prostatic hyperplasia without lower urinary tract symptoms; E78.5 Hyperlipidemia, unspecified; Z85.828 Personal history of other malignant neoplasm of skin; Y84.2 Radiological procedure and radiotherapy as the cause of abnormal reaction of the patient, or of later complication, without mention of misadventure at the time of the procedure | CPT/HCPCS: 97597; 97598 ==

== ENCOUNTER 2020-10-05 11:01 | Outpatient (CLI) | payer MEDICARE, OTHER | END 2020-10-05 23:59 | disposition home or self-care (01) | LOC: WOUND 11:01 | PROVIDERS: ATTEND Internal Medicine Infectious Disease | DX: I83.018 Varicose veins of right lower extremity with ulcer other part of lower leg (principal); I70.238 Atherosclerosis of native arteries of right leg with ulceration of other part of lower leg; L97.812 Non-pressure chronic ulcer of other part of right lower leg with fat layer exposed; C44.712 Basal cell carcinoma of skin of right lower limb, including hip; C83.35 Diffuse large B-cell lymphoma, lymph nodes of inguinal region and lower limb; L59.8 Other specified disorders of the skin and subcutaneous tissue related to radiation; I25.10 Atherosclerotic heart disease of native coronary artery without angina pectoris; L40.0 Psoriasis vulgaris; N40.0 Benign prostatic hyperplasia without lower urinary tract symptoms; E78.2 Mixed hyperlipidemia; Z85.828 Personal history of other malignant neoplasm of skin; Y84.2 Radiological procedure and radiotherapy as the cause of abnormal reaction of the patient, or of later complication, without mention of misadventure at the time of the procedure | CPT/HCPCS: 15271; 15272; Q4101 ==

== ENCOUNTER → 2020-10-12 | Outpatient (CLI) | payer MEDICARE, OTHER | END | disposition home or self-care (01) | LOC: WOUND 09:32 | PROVIDERS: ATTEND Internal Medicine | DX: I83.018 Varicose veins of right lower extremity with ulcer other part of lower leg (principal); I70.238 Atherosclerosis of native arteries of right leg with ulceration of other part of lower leg; L97.812 Non-pressure chronic ulcer of other part of right lower leg with fat layer exposed; L59.8 Other specified disorders of the skin and subcutaneous tissue related to radiation; I70.202 Unspecified atherosclerosis of native arteries of extremities, left leg; I25.10 Atherosclerotic heart disease of native coronary artery without angina pectoris; L03.115 Cellulitis of right lower limb; C44.712 Basal cell carcinoma of skin of right lower limb, including hip; C83.35 Diffuse large B-cell lymphoma, lymph nodes of inguinal region and lower limb; L40.0 Psoriasis vulgaris; I89.0 Lymphedema, not elsewhere classified; L84 Corns and callosities; N40.0 Benign prostatic hyperplasia without lower urinary tract symptoms; E78.5 Hyperlipidemia, unspecified; Z85.828 Personal history of other malignant neoplasm of skin; Y84.2 Radiological procedure and radiotherapy as the cause of abnormal reaction of the patient, or of later complication, without mention of misadventure at the time of the procedure | CPT/HCPCS: 15271; Q4101 ==

== ENCOUNTER 2020-10-18 14:59 | Outpatient (CLI) | payer MEDICARE, OTHER | END 2020-10-18 23:59 | disposition home or self-care (01) | LOC: WOUND 14:59 | PROVIDERS: ATTEND Nurse Practitioner Family | DX: I83.018 Varicose veins of right lower extremity with ulcer other part of lower leg (principal); I70.238 Atherosclerosis of native arteries of right leg with ulceration of other part of lower leg; L97.812 Non-pressure chronic ulcer of other part of right lower leg with fat layer exposed; L59.8 Other specified disorders of the skin and subcutaneous tissue related to radiation; I70.202 Unspecified atherosclerosis of native arteries of extremities, left leg; C44.712 Basal cell carcinoma of skin of right lower limb, including hip; I25.10 Atherosclerotic heart disease of native coronary artery without angina pectoris; L40.0 Psoriasis vulgaris; L03.115 Cellulitis of right lower limb; C83.35 Diffuse large B-cell lymphoma, lymph nodes of inguinal region and lower limb; I89.0 Lymphedema, not elsewhere classified; L84 Corns and callosities; N40.0 Benign prostatic hyperplasia without lower urinary tract symptoms; E78.5 Hyperlipidemia, unspecified; Z85.828 Personal history of other malignant neoplasm of skin; Y84.2 Radiological procedure and radiotherapy as the cause of abnormal reaction of the patient, or of later complication, without mention of misadventure at the time of the procedure | CPT/HCPCS: 97597; 97598 ==

== ENCOUNTER 2020-10-25 09:36 | Outpatient (CLI) | payer MEDICARE, OTHER | END 2020-10-25 23:59 | disposition home or self-care (01) | LOC: WOUND 09:36 | PROVIDERS: ATTEND Nurse Practitioner Family | DX: I70.238 Atherosclerosis of native arteries of right leg with ulceration of other part of lower leg (principal); I83.018 Varicose veins of right lower extremity with ulcer other part of lower leg; L97.812 Non-pressure chronic ulcer of other part of right lower leg with fat layer exposed; C44.712 Basal cell carcinoma of skin of right lower limb, including hip; C83.35 Diffuse large B-cell lymphoma, lymph nodes of inguinal region and lower limb; I87.2 Venous insufficiency (chronic) (peripheral); I89.0 Lymphedema, not elsewhere classified; I25.10 Atherosclerotic heart disease of native coronary artery without angina pectoris; L40.0 Psoriasis vulgaris; L59.8 Other specified disorders of the skin and subcutaneous tissue related to radiation; N40.0 Benign prostatic hyperplasia without lower urinary tract symptoms; E78.2 Mixed hyperlipidemia | CPT/HCPCS: 97597; 97598 ==

== ENCOUNTER → 2020-11-01 | Outpatient (CLI) | payer MEDICARE, OTHER | END | disposition home or self-care (01) | LOC: WOUND 09:56 | PROVIDERS: ATTEND Nurse Practitioner Family | DX: I83.018 Varicose veins of right lower extremity with ulcer other part of lower leg (principal); I70.238 Atherosclerosis of native arteries of right leg with ulceration of other part of lower leg; L97.812 Non-pressure chronic ulcer of other part of right lower leg with fat layer exposed; L59.8 Other specified disorders of the skin and subcutaneous tissue related to radiation; I70.202 Unspecified atherosclerosis of native arteries of extremities, left leg; C44.712 Basal cell carcinoma of skin of right lower limb, including hip; I25.10 Atherosclerotic heart disease of native coronary artery without angina pectoris; L40.0 Psoriasis vulgaris; L03.115 Cellulitis of right lower limb; C83.35 Diffuse large B-cell lymphoma, lymph nodes of inguinal region and lower limb; I89.0 Lymphedema, not elsewhere classified; L84 Corns and callosities; N40.0 Benign prostatic hyperplasia without lower urinary tract symptoms; E78.5 Hyperlipidemia, unspecified; Z85.828 Personal history of other malignant neoplasm of skin; Y84.2 Radiological procedure and radiotherapy as the cause of abnormal reaction of the patient, or of later complication, without mention of misadventure at the time of the procedure | CPT/HCPCS: 97597; 97598 ==

== ENCOUNTER → 2020-11-08 | Outpatient (CLI) | payer MEDICARE, OTHER | END | disposition home or self-care (01) | LOC: WOUND 13:16 | PROVIDERS: ATTEND Nurse Practitioner Family | DX: I83.018 Varicose veins of right lower extremity with ulcer other part of lower leg (principal); I70.238 Atherosclerosis of native arteries of right leg with ulceration of other part of lower leg; L97.812 Non-pressure chronic ulcer of other part of right lower leg with fat layer exposed; L03.115 Cellulitis of right lower limb; L59.8 Other specified disorders of the skin and subcutaneous tissue related to radiation; I70.202 Unspecified atherosclerosis of native arteries of extremities, left leg; C44.712 Basal cell carcinoma of skin of right lower limb, including hip; I25.10 Atherosclerotic heart disease of native coronary artery without angina pectoris; L40.0 Psoriasis vulgaris; C83.35 Diffuse large B-cell lymphoma, lymph nodes of inguinal region and lower limb; I89.0 Lymphedema, not elsewhere classified; L84 Corns and callosities; N40.0 Benign prostatic hyperplasia without lower urinary tract symptoms; E78.5 Hyperlipidemia, unspecified; Z85.828 Personal history of other malignant neoplasm of skin; Y84.2 Radiological procedure and radiotherapy as the cause of abnormal reaction of the patient, or of later complication, without mention of misadventure at the time of the procedure | CPT/HCPCS: 97597; 97598 ==

== ENCOUNTER 2020-11-15 13:21 | Outpatient (CLI) | payer MEDICARE, OTHER | END 2020-11-15 23:59 | disposition home or self-care (01) | LOC: WOUND 13:21 | PROVIDERS: ATTEND Nurse Practitioner Family | DX: I83.018 Varicose veins of right lower extremity with ulcer other part of lower leg (principal); I70.238 Atherosclerosis of native arteries of right leg with ulceration of other part of lower leg; L97.812 Non-pressure chronic ulcer of other part of right lower leg with fat layer exposed; L59.8 Other specified disorders of the skin and subcutaneous tissue related to radiation; L03.115 Cellulitis of right lower limb; I70.202 Unspecified atherosclerosis of native arteries of extremities, left leg; I25.10 Atherosclerotic heart disease of native coronary artery without angina pectoris; I87.2 Venous insufficiency (chronic) (peripheral); C44.712 Basal cell carcinoma of skin of right lower limb, including hip; L40.0 Psoriasis vulgaris; C83.35 Diffuse large B-cell lymphoma, lymph nodes of inguinal region and lower limb; I89.0 Lymphedema, not elsewhere classified; L84 Corns and callosities; N40.0 Benign prostatic hyperplasia without lower urinary tract symptoms; E78.5 Hyperlipidemia, unspecified; Z85.828 Personal history of other malignant neoplasm of skin; Y84.2 Radiological procedure and radiotherapy as the cause of abnormal reaction of the patient, or of later complication, without mention of misadventure at the time of the procedure | CPT/HCPCS: 97597; 97598 ==

== ENCOUNTER 2020-11-18 09:45 | Outpatient (CLI) | payer MEDICARE, OTHER | END 2020-11-18 23:59 | disposition home or self-care (01) | LOC: CFH 09:45 | PROVIDERS: ATTEND Internal Medicine Cardiovascular Disease | DX: I08.8 Other rheumatic multiple valve diseases (principal) | CPT/HCPCS: 93306 ==

== ENCOUNTER → 2020-11-22 | Outpatient (CLI) | payer MEDICARE, OTHER | END | disposition home or self-care (01) | LOC: WOUND 10:19 | PROVIDERS: ATTEND Nurse Practitioner Family | DX: I83.018 Varicose veins of right lower extremity with ulcer other part of lower leg (principal); I70.238 Atherosclerosis of native arteries of right leg with ulceration of other part of lower leg; L97.812 Non-pressure chronic ulcer of other part of right lower leg with fat layer exposed; L59.8 Other specified disorders of the skin and subcutaneous tissue related to radiation; L03.115 Cellulitis of right lower limb; I70.202 Unspecified atherosclerosis of native arteries of extremities, left leg; I25.10 Atherosclerotic heart disease of native coronary artery without angina pectoris; C44.712 Basal cell carcinoma of skin of right lower limb, including hip; L40.0 Psoriasis vulgaris; C83.35 Diffuse large B-cell lymphoma, lymph nodes of inguinal region and lower limb; I89.0 Lymphedema, not elsewhere classified; L84 Corns and callosities; E78.2 Mixed hyperlipidemia; N40.0 Benign prostatic hyperplasia without lower urinary tract symptoms; Z85.828 Personal history of other malignant neoplasm of skin; Y84.2 Radiological procedure and radiotherapy as the cause of abnormal reaction of the patient, or of later complication, without mention of misadventure at the time of the procedure | CPT/HCPCS: 97597; 97598 ==

== ENCOUNTER → 2020-11-29 | Outpatient (CLI) | payer MEDICARE, OTHER | END | disposition home or self-care (01) | LOC: WOUND 13:30 | PROVIDERS: ATTEND Nurse Practitioner Family | DX: I83.018 Varicose veins of right lower extremity with ulcer other part of lower leg (principal); I70.238 Atherosclerosis of native arteries of right leg with ulceration of other part of lower leg; L97.812 Non-pressure chronic ulcer of other part of right lower leg with fat layer exposed; I70.202 Unspecified atherosclerosis of native arteries of extremities, left leg; L03.115 Cellulitis of right lower limb; L59.8 Other specified disorders of the skin and subcutaneous tissue related to radiation; I25.10 Atherosclerotic heart disease of native coronary artery without angina pectoris; C44.712 Basal cell carcinoma of skin of right lower limb, including hip; L40.0 Psoriasis vulgaris; C83.35 Diffuse large B-cell lymphoma, lymph nodes of inguinal region and lower limb; I89.0 Lymphedema, not elsewhere classified; L84 Corns and callosities; E78.2 Mixed hyperlipidemia; N40.0 Benign prostatic hyperplasia without lower urinary tract symptoms; Z85.828 Personal history of other malignant neoplasm of skin; Y84.2 Radiological procedure and radiotherapy as the cause of abnormal reaction of the patient, or of later complication, without mention of misadventure at the time of the procedure | CPT/HCPCS: 15271; 15272; Q4101 ==

== ENCOUNTER 2020-12-06 13:17 | Outpatient (CLI) | payer MEDICARE, OTHER | END 2020-12-06 23:59 | disposition home or self-care (01) | LOC: WOUND 13:17 | PROVIDERS: ATTEND Nurse Practitioner Family | DX: L59.8 Other specified disorders of the skin and subcutaneous tissue related to radiation (principal); I70.238 Atherosclerosis of native arteries of right leg with ulceration of other part of lower leg; I83.018 Varicose veins of right lower extremity with ulcer other part of lower leg; L97.812 Non-pressure chronic ulcer of other part of right lower leg with fat layer exposed; C44.712 Basal cell carcinoma of skin of right lower limb, including hip; I70.202 Unspecified atherosclerosis of native arteries of extremities, left leg; L03.115 Cellulitis of right lower limb; I25.10 Atherosclerotic heart disease of native coronary artery without angina pectoris; L40.0 Psoriasis vulgaris; C83.35 Diffuse large B-cell lymphoma, lymph nodes of inguinal region and lower limb; I89.0 Lymphedema, not elsewhere classified; L84 Corns and callosities; E78.2 Mixed hyperlipidemia; N40.0 Benign prostatic hyperplasia without lower urinary tract symptoms; Z85.828 Personal history of other malignant neoplasm of skin; Y84.2 Radiological procedure and radiotherapy as the cause of abnormal reaction of the patient, or of later complication, without mention of misadventure at the time of the procedure | CPT/HCPCS: 15271; 15272; Q4101 ==

== ENCOUNTER 2020-12-13 14:16 | Outpatient (CLI) | payer MEDICARE, OTHER | END 2020-12-13 23:59 | disposition home or self-care (01) | LOC: WOUND 14:16 | PROVIDERS: ATTEND Nurse Practitioner Family | DX: L59.8 Other specified disorders of the skin and subcutaneous tissue related to radiation (principal); I70.238 Atherosclerosis of native arteries of right leg with ulceration of other part of lower leg; I83.018 Varicose veins of right lower extremity with ulcer other part of lower leg; L97.812 Non-pressure chronic ulcer of other part of right lower leg with fat layer exposed; I70.202 Unspecified atherosclerosis of native arteries of extremities, left leg; C44.712 Basal cell carcinoma of skin of right lower limb, including hip; L03.115 Cellulitis of right lower limb; I25.10 Atherosclerotic heart disease of native coronary artery without angina pectoris; L40.0 Psoriasis vulgaris; C83.35 Diffuse large B-cell lymphoma, lymph nodes of inguinal region and lower limb; I89.0 Lymphedema, not elsewhere classified; L84 Corns and callosities; E78.2 Mixed hyperlipidemia; N40.0 Benign prostatic hyperplasia without lower urinary tract symptoms; Z85.828 Personal history of other malignant neoplasm of skin; Y84.2 Radiological procedure and radiotherapy as the cause of abnormal reaction of the patient, or of later complication, without mention of misadventure at the time of the procedure | CPT/HCPCS: 15271; 15272; Q4101 ==

== ENCOUNTER 2020-12-20 13:19 | Outpatient (CLI) | payer MEDICARE, OTHER | END 2020-12-20 23:59 | disposition home or self-care (01) | LOC: WOUND 13:19 | PROVIDERS: ATTEND Nurse Practitioner Family | DX: I83.018 Varicose veins of right lower extremity with ulcer other part of lower leg (principal); L97.812 Non-pressure chronic ulcer of other part of right lower leg with fat layer exposed; S81.801D Unspecified open wound, right lower leg, subsequent encounter; L59.8 Other specified disorders of the skin and subcutaneous tissue related to radiation; C44.712 Basal cell carcinoma of skin of right lower limb, including hip; C83.35 Diffuse large B-cell lymphoma, lymph nodes of inguinal region and lower limb; I25.10 Atherosclerotic heart disease of native coronary artery without angina pectoris; L40.0 Psoriasis vulgaris; I70.202 Unspecified atherosclerosis of native arteries of extremities, left leg; N40.0 Benign prostatic hyperplasia without lower urinary tract symptoms; E78.5 Hyperlipidemia, unspecified; Y84.2 Radiological procedure and radiotherapy as the cause of abnormal reaction of the patient, or of later complication, without mention of misadventure at the time of the procedure; X58.XXXD Exposure to other specified factors, subsequent encounter | CPT/HCPCS: 97597; 97598 ==

== ENCOUNTER 2020-12-27 13:04 | Outpatient (CLI) | payer MEDICARE, OTHER | END 2020-12-27 23:59 | disposition home or self-care (01) | LOC: WOUND 13:04 | PROVIDERS: ATTEND Nurse Practitioner Family | DX: I83.018 Varicose veins of right lower extremity with ulcer other part of lower leg (principal); I70.238 Atherosclerosis of native arteries of right leg with ulceration of other part of lower leg; L97.812 Non-pressure chronic ulcer of other part of right lower leg with fat layer exposed; S81.801D Unspecified open wound, right lower leg, subsequent encounter; L59.8 Other specified disorders of the skin and subcutaneous tissue related to radiation; C44.712 Basal cell carcinoma of skin of right lower limb, including hip; C83.35 Diffuse large B-cell lymphoma, lymph nodes of inguinal region and lower limb; I25.10 Atherosclerotic heart disease of native coronary artery without angina pectoris; L40.0 Psoriasis vulgaris; I89.0 Lymphedema, not elsewhere classified; E78.2 Mixed hyperlipidemia; I70.202 Unspecified atherosclerosis of native arteries of extremities, left leg; N40.0 Benign prostatic hyperplasia without lower urinary tract symptoms; Z85.828 Personal history of other malignant neoplasm of skin; Y84.2 Radiological procedure and radiotherapy as the cause of abnormal reaction of the patient, or of later complication, without mention of misadventure at the time of the procedure; X58.XXXD Exposure to other specified factors, subsequent encounter | CPT/HCPCS: 97597; 97598 ==

== ENCOUNTER → 2021-01-03 | Outpatient (CLI) | payer MEDICARE, OTHER | END | disposition home or self-care (01) | LOC: WOUND 11:04 | PROVIDERS: ATTEND Nurse Practitioner Family | DX: I83.018 Varicose veins of right lower extremity with ulcer other part of lower leg (principal); I70.238 Atherosclerosis of native arteries of right leg with ulceration of other part of lower leg; L97.812 Non-pressure chronic ulcer of other part of right lower leg with fat layer exposed; L59.8 Other specified disorders of the skin and subcutaneous tissue related to radiation; C44.712 Basal cell carcinoma of skin of right lower limb, including hip; C83.35 Diffuse large B-cell lymphoma, lymph nodes of inguinal region and lower limb; I25.10 Atherosclerotic heart disease of native coronary artery without angina pectoris; L40.0 Psoriasis vulgaris; I89.0 Lymphedema, not elsewhere classified; E78.2 Mixed hyperlipidemia; I70.202 Unspecified atherosclerosis of native arteries of extremities, left leg; N40.0 Benign prostatic hyperplasia without lower urinary tract symptoms; Z85.828 Personal history of other malignant neoplasm of skin; Y84.2 Radiological procedure and radiotherapy as the cause of abnormal reaction of the patient, or of later complication, without mention of misadventure at the time of the procedure | CPT/HCPCS: 97597; 97598 ==

== ENCOUNTER → 2021-01-10 | Outpatient (CLI) | payer MEDICARE, OTHER | END | disposition home or self-care (01) | LOC: WOUND 12:40 | PROVIDERS: ATTEND Nurse Practitioner Family | DX: I83.018 Varicose veins of right lower extremity with ulcer other part of lower leg (principal); I70.238 Atherosclerosis of native arteries of right leg with ulceration of other part of lower leg; L97.812 Non-pressure chronic ulcer of other part of right lower leg with fat layer exposed; L59.8 Other specified disorders of the skin and subcutaneous tissue related to radiation; C44.712 Basal cell carcinoma of skin of right lower limb, including hip; C83.35 Diffuse large B-cell lymphoma, lymph nodes of inguinal region and lower limb; I25.10 Atherosclerotic heart disease of native coronary artery without angina pectoris; L40.0 Psoriasis vulgaris; I89.0 Lymphedema, not elsewhere classified; E78.2 Mixed hyperlipidemia; I70.202 Unspecified atherosclerosis of native arteries of extremities, left leg; N40.0 Benign prostatic hyperplasia without lower urinary tract symptoms; Z85.828 Personal history of other malignant neoplasm of skin; Y84.2 Radiological procedure and radiotherapy as the cause of abnormal reaction of the patient, or of later complication, without mention of misadventure at the time of the procedure ==